=== PATIENT | female | born 2000 | race Two or more races ===

== ENCOUNTER 2024-04-19 19:02 | Emergency (ER) | payer BC ==
[~2024-04-19] VITALS: Ht 167.6 cm; Wt 82.1 kg
[2024-04-19 19:24] VITALS: TEMP 98.3
[2024-04-19 19:51] LABS: BASOPHILS % 0.1 % (0.0-1.0); EOSINOPHILS # (AUTO) 0.1 (0.0-0.4); EOSINOPHILS % 0.5 % (0.0-6.0); HEMATOCRIT 38.4 % (34.2-44.1); HEMOGLOBIN 12.9 g/dL (12.0-16.0); LYMPHOCYTES # (AUTO) 1.4 (1.0-3.2); LYMPHOCYTES % 11.1 % (18.0-39.1); MEAN CORPUSCULAR HEMOGLOBIN 29.3 pg (28-32); MEAN CORPUSCULAR HGB CONC 33.6 g/dL (31-35); MEAN CORPUSCULAR VOLUME 87.3 fL (81-99); MONOCYTES # (AUTO) 0.5 (0.2-0.8); MONOCYTES % 3.6 % (4.4-11.3); NEUTROPHILS # (AUTO) 10.6 (2.1-6.9); NEUTROPHILS % 84.2 % (38.7-80.0); PLATELET COUNT 304 x10e3/uL (140-360); RED CELL DISTRIBUTION WIDTH 12.3 % (11.7-14.4); WHITE BLOOD COUNT 12.53 x10e3/uL (4.8-10.8)
[2024-04-19 20:07] LABS: ANION GAP 14.8 mmol/L (8-16); CALCIUM 9.7 mg/dL (8.4-10.2); CREATININE, SERUM 0.89 mg/dL (0.57-1.11); POTASSIUM 3.8 mmol/L (3.5-5.1)
[2024-04-19] MEDS: KETOROLAC TROMETHAMINE 30 MG/ML VIAL IV STA (20:48)
[2024-04-19] MEDS: ONDANSETRON HCL INJ 2MG/ML 2ML 2 MG/ML VIAL IV STA (20:49)
[2024-04-19 22:00] VITALS: PULSE 56; RESP 16
[2024-04-19 22:06] LABS: CLARITY,URINE CLEAR (CLEAR); COLOR,URINE YELLOW (YELLOW); LEUKOCYTE ESTERASE ,URINE NEGATIVE (NEGATIVE); NITRITE,URINE NEGATIVE (NEGATIVE); PH,URINE 6.5 (5 - 7); PROTEIN,URINE DIPSTICK 1+ (NEGATIVE)
[2024-04-19 22:07] LABS: BILIRUBIN,URINE NEGATIVE (NEGATIVE); GLUCOSE, URINE NEGATIVE (NEGATIVE); KETONES,URINE 2+ (NEGATIVE); URINE UROBILINOGEN 0.2 mg/dL (0.2 - 1)
[2024-04-19] MEDS ORDERED: MACROBID 100 M100 MG PO (22:18)
[2024-04-19] MEDS ORDERED: KETOROLAC TROME10 MG PO (22:18)
[2024-04-19] MEDS ORDERED: ONDANSETRON ODT4 MG SL (22:18)
[2024-04-19 22:29] LABS: RBC,URINE 21-50 /HPF (0-5); WBC,URINE (MAN) 0-5 /HPF (0-5)
[2024-04-19 22:30] LABS: BACTERIA,URINE MODERATE /HPF; EPITHELIAL CELLS,URINE MODERATE /LPF
[2024-04-19 22:31] VITALS: BP 117/74; O2SAT 99
== END 2024-04-19 22:33 | disposition home or self-care (01) ==
LOC: ER 19:10
DX: R11.2 Nausea with vomiting, unspecified (principal); N20.2 Calculus of kidney with calculus of ureter; R10.30 Lower abdominal pain, unspecified
CPT/HCPCS: 36415; 74176; 80048; 81001; 84702; 85025; 99284; J1885; J2405

== ENCOUNTER → 2024-04-19 | Emergency (ER) ==
[~2024-04-19] MED LIST: KETOROLAC TROME10 MG PO; MACROBID 100 M100 MG PO; ONDANSETRON ODT4 MG SL
== END | disposition left against medical advice (07) ==
LOC: ER 18:02
DX: M54.50 Low back pain, unspecified (principal)